=== PATIENT | male | born 1940 | race Caucasian/White ===

== ENCOUNTER 2023-07-24 10:02 | Outpatient (AMB) | payer MEDICARE, OTHER, SELFPAY ==
[2023-07-24 10:38] VITALS: BP 140/64; PULSE 79; O2SAT 94; BMI 25.8
--- NOTE | 2023-07-24 10:38 | HO.NEPHOV_ITS ---
Vital Signs 07/24/23 10:38 07/24/23 11:01 Height 5 ft 7 in Weight 165 lb BMI 25.8 BP 140/64 H 130/60 Blood Pressure Location Lt brachial Lt brachial Position Sitting Sitting Pulse 79 Pulse Source Pulse Oximeter Pulse Oximetry (%) 94 Oxygen Delivery Method Room Air Intake Visit Reasons: CKD STG3A/ Confirmed Print Line Feeder Required: No Accompanied by: Spouse Allergies No Known Allergies Allergy (Verified 07/24/23 10:39) HPI Comments Details: .. Jaime is a pleasant 82-year-old man with a history of longstanding hypertension and COPD. In June of 2023 he was found to have a serum creatinine 1.42 and subsequent creatinine was 1.5 mg/dL. EGFR of 50 mL/minute and he has been referred for further evaluation of CKD. Hypertension has been well controlled with amlodipine 10 mg. There has been no changes in the dose age for quite some time. According to his he has on a regular or high salt diet. He has a long history of smoking up to 2 packs per day. He quit in 2004 after the CVA. Jaime has a history of cerebrovascular accident about 4 years ago. He does not have any residual at this time. Has a history of chronic back pain. He has sciatica and has had steroid injections. Does not take any NSAIDs. FORMERLY [facility], 1928–1983 Medical History (Updated 07/24/23 @ 11:24 by Mateo Robins MD) H/O Mohs micrographic surgery for skin cancer Surgical History History of prostate biopsy (~12/2017) Hx of cataract surgery H/O colonoscopy (~08/2013) Review of Systems Const Denies fever(s) and Denies weight loss Card Denies chest pain Resp Denies cough and Denies hemoptysis GI Denies abdominal pain, Denies diarrhea and Denies nausea Neuro Denies focal weakness Physical Exam Vital Signs: Last Vital Signs Pulse 79 07/24/23 10:38 BP 130/60 07/24/23 11:01 Pulse Ox 94 07/24/23 10:38 Oxygen Delivery Method Room Air 07/24/23 10:38 BMI result Body Mass Index 25.8 Const General: comfortable Nutritional Appearance: well nourished Orientation/consciousness: patient oriented x3 HEENT Head: No normal to inspection Mouth: moist mucous membranes Neck Neck: Yes supple and Yes no JVD Resp Auscultation: clear to auscultation bilaterally, no rales and rub present Cardio Jugular venous distension: no JVD Palpation: no palpable S3 and no palpable S4 Heart sounds: no rubs GI Palpation (GI): Soft to palpation and nontender Percussion: No Fluid wave present General: Yes no CVA tenderness Back/Spine/Pelvis Back: no CVA tenderness Skin General skin exam: no rashes or lesions noted Neuro General: patient oriented x3 Extrem General: Yes no pedal edema and No clubbing Results Reviewed Results Reviewed: Renal ultrasonogram at [facility] on 07/22/2023. Both kidneys appeared normal in size with increased echogenicity. No stones no mass no hydronephrosis. Mild bladder wall thickening. Nephrology Results: No Data to Display Assessment & Plan Assessment & Plan (1) CKD (chronic kidney disease) stage 3, GFR 30-59 ml/min: Code(s): N18.30 - Chronic kidney disease, stage 3 unspecified Category: Medical (2) HTN (hypertension): Code(s): I10 - Essential (primary) hypertension Category: Medical Plan .. Jaime has a history of longstanding hypertension. Blood pressure is well controlled. Goal is to maintain blood pressure less than 130/80. 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 Echogenic kidneys suggestive of the same. Urine sediments bland without significant proteinuria. Therefore I do not believe he has any active glomerulonephritis or interstitial disease. No evidence of obstruction based on renal ultrasonogram. Clinical picture is not suggestive of renal artery stenosis His baseline creatinine is probably around 1.4-1.5 mg/dL Goal is to slow the progression of renal disease. Discussed importance of tight control blood pressure and maintain less than 130/80. Increase p.o. fluid intake. Continue to avoid nephrotoxic agents including NSAIDs. She will monitor serum creatinine periodically. He has a follow-up appointment with urologist Dr. Oropeza next week Jaime we will be going to [place] in November and will return in June of 2024. I plan to see him when he returns. I encouraged him to call me if he has any other issues in the interim. I have reassured him and answered all his questions. Orders: Orders Basic Metabolic Panel 11 Months N18.30 - Chronic kidney disease, stage 3 unspecified Coding Level of Care Code New Pt Level 4 (35224) Diagnoses CKD (chronic kidney disease) stage 3, GFR 30-59 ml/min N18.30 HTN (hypertension) I10
[2023-07-24 11:01] VITALS: BP 130/60
== END 2023-07-24 11:10 | disposition home or self-care (01) ==
PROVIDERS: PCP Family Medicine; Referring Provider Family Medicine; Visit Provider Internal Medicine Hypertension Specialist
DX: N18.30 Chronic kidney disease, stage 3 unspecified (principal); I10 Essential (primary) hypertension
CPT/HCPCS: 99204

== ENCOUNTER → 2023-07-24 10:02 | Outpatient (BNVA) | payer MEDICARE, OTHER, SELFPAY | PROVIDERS: PCP Family Medicine; Referring Provider Family Medicine; Visit Provider Internal Medicine Hypertension Specialist | DX: I12.9 Hypertensive chronic kidney disease with stage 1 through stage 4 chronic kidney disease, or unspecified chronic kidney disease (principal); N18.30 Chronic kidney disease, stage 3 unspecified | CPT/HCPCS: 99202 ==

== ENCOUNTER 2024-06-30 11:06 | Outpatient (REF) | payer MEDICARE, OTHER, SELFPAY ==
--- OUTSIDE RECORDS SUMMARY | 2024-06-30 12:36 | XMS_ITS | Data Portability ---
Author Organization [place] - [facility], Main Office Address [address] [place] [address] Care Team Providers Care Multimedia Technician Name Role Phone DES THOMASON Primary Care Provider Assessment No assessment recorded. Plan of Treatment Reminders Order Date Submit Date Provider Last Modified By Organization Details Last Modified Time Details Appointments None recorded. Lab None recorded. Referral None recorded. Procedures treadmill nuclear stress test (PROC) 2019 020 [facility], [address], [place], [address], 0 14:34:06 trans-thora cic echocardiog gerard (TTE) (PROC) 2019 020 [email or web address] Not available 0 12:18:57 Surgeries None recorded. Imaging electrocard iogram 2019 020 [email or web address] In-House Test, For Internal Use Only, Do Not Delete/merge, [id number] 0 13:37:44 Medication Orders None recorded. Patient TargetsNo targets recorded. Patient InstructionsNo instructions recorded. Reason for Referral None Reported. Results Created Date Observation Date Name Description Value Unit Range Abnormal Flag Note LastModifiedBy Organization Detail LastModifiedTime 03/10/19 20 03/10/2019 elect rocar diogr am Rate & Rhythm NSR Not Available In-[place] se Test For Internal Use Only, Do Not Delete/merge, [id number] 03/10/2019 12:13:51 03/10/19 20 02/24/2019 elect rocar diogr am No observ ation record ed. [email or web address] Not Available 03/10 15:02:10 03/10/19 20 02/24/2019 XR, chest No observ ation record ed. [email or web address] Not Available 03/10 15:06:08 03/10/19 20 03/10/2019 elect selwyn moses am No observ ation record ed. [email or web address] In-House Test For Internal Use Only, Do Not Delete/merge, [id number] 03/10/2019 15:15:03 03/11/19 20 03/10/2019 trans -thor acic echoc ardio gram (TTE) (PROC ) No observ ation record ed. [email or web address] [facility] [address], [place], [address], 03/12/2019 10:19:26 03/16/19 tread mill nucle ar stres s test (PROC ) No observ ation record ed. [email or web address] [facility] [address], [place], [address], 03/17/2019 17:24:44 03/16/19 20 03/16/2019 tread mill nucle ar stres s test (PROC ) No observ ation record ed. [email or web address] [facility] [address], [place], [address], 03/20/2019 15:05:26 Result Notes None recorded. Problems Name Problem SNOMED Code Status Onset Date Resolution Date Notes Provider Name and Address Organization Details Recorded Time Essential hypertension 43115030 Active 2019 GROVER Mathew - [facility] 0 12:26:48 Cerebrovascul ar accident 424514873 Active 2004 GROVER Mathew - [facility] 0 12:29:06 Problem Notes None recorded. Procedures Surgical History Date Name Laterality Status Provider Name and Address Organization Details Recorded Time bilateral extraction of cataracts completed ALCON NESS - [facility] 03/10/2019 12:29:27 screening for cancer completed ALCONQUE ZELAYA [place] - [facility] 03/10/2019 12:29:36 Imaging Results Imaging Date Name Status LastModified by Organization Details LastModified Time 02/24/2019 electrocardiogram completed [email or web address] Informa tion not available 03/10/2019 15:02:10 02/24/2019 XR, chest completed [email or web address] Information no t available 03/10/2019 15:06:08 03/10/2019 electrocardiogram completed [email or web address] In-Hous e Test For Internal Use Only, Do Not Delete/merge, [id number] 03/10/2019 15:15:03 03/10/2019 trans-thoracic echocardiogram (TTE) (PROC) completed [email or web address] [facility] [address], [place], [address], 03/12/2019 10:19:26 03/16/2019 treadmill nuclear stress test (PROC) completed [email or web address] [facility] [address], [place], [address], 03/17/2019 17:24:44 03/16/2019 treadmill nuclear stress test (PROC) completed [facility] [address], [place], [address], 03/20/2019 15:05:26 Procedure Notes None recorded. Medical Equipment None Reported. Allergies No known drug allergies Medications Name Sig Start Date Stop Date Status Note LastModified by Organization Details LastModified Time atorvastatin 40 mg tablet Take 1 tablet every day by oral route. active Not Available Not Available No t Available Toprol XL 100 mg tablet,exten ded release active Not Available Not Available Not Available amlodipine 5 mg tablet Take 1 tablet every day by oral route. active Not Available Not Available No t Available aspirin 81 mg tablet,delay ed release Take 1 tablet every day by oral route. active Not Available Not Available No t Available tramadol 50 mg tablet active Not Available Not Available No t Available losartan 100 mg-hydrochlo rothiazide 25 mg tablet Take 1 tablet every day by oral route. active Not Available Not Available No t Available imiquimod 5 % topical cream packet active Not Available Not Available Not Available amlodipine 10 mg tablet active Not Available Not Available Not Available cephalexin 500 mg capsule active Not Available Not Available Not Available methylpredni solone 4 mg tablets in a dose pack active Not Available Not Available No t Available Symbicort 80 mcg-4.5 mcg/actuatio n HFA aerosol inhaler Inhale 4 puffs twice a day by inhalation route. active Not Available Not Available No t Available Havrix (PF) 1,440 LIDIA unit/mL intramuscula r syringe active Not Available Not Available No t Available M-M-R II (PF) 1,000-12,500 TCID50/0.5 mL subcutaneous solution active Not Available Not Available Not Available Shingrix (PF) 50 mcg/0.5 mL intramuscula r suspension, kit active Not Available Not Available Not Available metoprolol succinate ER 100 mg capsule sprinkle, ext. release 24 hr Take 1 capsule every day by oral route. active Not Available Not Available No t Available Vitals Date Recorded Body weight Oxygen saturation Oxygen saturation in Arterial blood by Pulse oximetry Provider Name and Address Organization Details Last Updated DateTime 03/10/2019 52230.66 g 96 % 96 % ALCON NESS - [facility] 03/10/2019 12:16:44 Social History None recorded. Functional Status None recorded. Mental Status None recorded. Family History Relationship Description Onset Age of this Age Resolved Age Notes LastModified by Organization Details LastModified Time Mother Family history of malignant neoplasm [email or web address] Not available 2019 12:27:32 Father Essential hypertension [email or web address] Not available 12:28:09 Father Family history of stroke [email or web address] Not available 2019 12:28:25 Notes:THROAT CANCER Medical History Condition Response Hyperlipidemia Y Cancer Y Stroke Y Hypertension Y Immunizations Vaccine Type Date Status Note Provider Nam e and Address Organization Details Recorded Time tetanus toxoid, unspecified formulation 0 completed GROVER Mathew - [facility] 03/10/2019 12:21:41 pneumococcal, unspecified formulation 3 completed GROVER Mathew - [facility] 03/10/2019 12:22:04 Hep A, adult 9 completed GROEVR Mathew - [facility] 03/10/2019 12:22:45 MMR 9 completed GROVER Mathew - [facility] 03/10/2019 12:23:03 Past Encounters Encounter ID Performer Location Encounter Start Date Encounter Closed Date Diagnosis/Indication Diagnosis SNOMED-CT Code Diagnosis ICD10 Code Diagnosis Note [id number] LUÍS VIVAR MD [facility] [place] [address] [facility] [address] [place] [address] 03/10/2019 12:03:35 03/10/2019 13:37:43 Essential hypertension 45361006 I10 Dyspnea on exertion 6084 5006 R06.09 Electrocar diogram abnormal 868821489 R94.31 Hyperlipidemia 47294331 E78.5 Cerebrovas cular accident 973089592 I63.9 Health Concerns Section Related Observation LastModified by Organization Detai ls LastModified Time None Recorded Concern Status LastModified by Organization Details LastModified Time None Recorded Advance Directives Directive None Recorded Payers Insurance Date Sequence Insurance Name Policy Number Policy Carbajal Covered Member ID Carbajal Member ID Guarantor Name 06/02/2019 1 [place] Jaime Loera [id number] Jaime Loera 03/15/2019 2 [employer] [id number] Cat Loera [id number] Jaime Loera Notes Date Note Type Note Provider Name and Address Organization Details Recorded Time 03/10/2019 text/html 78 y/o Male with Ho COPD, CVA, HTN,HLP, Pt with Back pproblems Had preop show Poss Old Inferior infarct with T Changes in Inf leads, Pt with Increase ROSADO. Social:Former [employer] 1 1/2 PPdquit 2004ETOH: Social. Fam HO :Father CVAMother Ca LUÍS VIVAR MD [address], [place], [address], [facility] - [facility] 03/10/2019 13:14:20
--- OUTSIDE RECORDS SUMMARY | 2024-06-30 12:36 | XMS_ITS | Clinical Summary ---
Author Organization [facility] ity Address [address] [place] [address] Care Team Providers Care Library Attendant Name Role Phone Huitron, Gary Primary Care Provider [phone] Allergies No known active allergies Medications sertraline (ZOLOFT) 100 mg tablet Take 100 mg by mouth daily. Active atorvastatin (LIPITOR) 40 mg tablet Take 40 mg by mouth daily. Active metoprolol succinate (Kapspargo Sprinkle) 100 mg capsule,sprinkle ,ER 24hr Take 100 mg by mouth daily. Active amLODIPine (NORVASC) 10 mg tablet Take 10 mg by mouth daily. Active aspirin 81 mg chewable tablet Take 81 mg by mouth daily. Active Active Problems Problem Noted Date Diagnosed Date CKD (chronic kidney disease) stage 3, GFR 30-59 ml/min ([facility] V24, [facility] V28) 10/07/2018 Spinal stenosis 10/07/2018 Allergic rhinitis 07/22/2017 Asthma 07/22/2017 Chronic obstructive pulmonar y disease (COPD) ([facility] V24, [facility] V28) 07/22/2017 DDD (degenerative disc disease), lumbar 07/23/19 18 DISH (diffuse idiopathic skeletal hyperostosis) 07/22/2017 Overview (03/02/2024): Thoracic, incidental finding CT chest 10/25/16 Hyperlipidemia 07/22/2017 Hypertension 07/22/2017 Pulmonary nodule, right 07/22/2017 Overview (03/02/2024): 5 mm RUL Immunizations Name Administration Dates Next Due Influenza trivalent, 0.5mL, preservative free (Fluarix; FluLaval; Fluzone) ages 6mo and older (Afluria) 3 years and older 11/05/2017 Pneumococcal polysaccharide 23 valent (Pneumovax 23) 2yo and older 11/05/2017 Surgical History Surgery Date Site/Laterality Comments COLONOSCOPY 08/24/2013 PROCEDURE: HISTORICAL COLONOSCOPY CATARACT EXTRACTION PROCEDURE: HISTORICAL CATARACT REMOVAL Medical History Medical History Date Comments Allergic rhinitis 07/22/2017 DX:Allergic rh initis Asthma 07/22/2017 DX:Asthma Chronic obstructive pulmonar y disease (COPD) ([facility] V24, [facility] V28) 07/22/2017 DX:Chronic obstructi ve pulmonary disease (COPD) ([facility]) DDD (degenerative disc disease), lumbar 07/22/2017 DX:DDD (degenerative disc disease), lumbar DISH (diffuse idiopathic ske letal hyperostosis) 07/22/2017 DX:DISH (diffuse idiopathic skeletal hyperostosis); COMMENT: Thoracic, incidental finding CT chest 10/25/16 History of stroke 07/22/2017 DX:History of stroke Hyperlipidemia 07/22/2017 DX:Hyperlipidemi a Hypertension 07/22/2017 DX:Hypertension Pulmonary nodule, right 07/22/2017 DX:Pulmo nary nodule, right CKD (chronic kidney disease) stage 3, GFR 30-59 ml/min ([facility] V24, [facility] V28) 10/07/2018 DX:CKD (chronic kidney disea se) stage 3, GFR 30-59 ml/min ([facility]) History of squamous cell car cinoma of skin 10/07/2018 DX:History of squamous cell carcinoma of skin Spinal stenosis 10/07/2018 DX:Spinal stenos is Family History Medical History Relation Name Comments Stroke Father Throat cancer Mother Relation Name Status Comments Father Mother Social History Tobacco Use Types Packs/Day Years Used Date Smoking Tobacco: Former Cigarettes Q uit: 02/19/2004 Smokeless Tobacco: Never Alcohol Use Standard Drinks/Week Comments Yes 0 (1 standard drink = 0.6 oz pur e alcohol) Sex and Gender Information Value Date Recorded Sex Assigned at Not on file Legal Sex Male 1:48 PM EST Gender Identity Not on file Sexual Orientation Not on file Obstetrics History Last Filed Vital Signs Vital Sign Reading Time Taken Comments Blood Pressure 100/60 08/27/2023 9:03 AM EDT Sit ting L Arm Pulse 68 08/27/2023 9:03 AM EDT Temperature - - Respiratory Rate - - Oxygen Saturation - - Inhaled Oxygen Concentration - - Weight 74.8 kg (165 lb) 08/27/2023 9:03 AM EDT Height 170.2 cm (5' 7 ) 08/27/2023 9:03 AM EDT Body Mass Index 25.84 08/27/2023 9:03 AM EDT Plan of Treatment Upcoming Encounters Date Type Department Care Team (Late st Contact Info) Description 08/26/2024 8:15 AM EDT Office Visit Pulmonolgy - [place] [address] [place] [id number] Nam Galvan MD [address] [place] [address] Health Maintenance Due Date Last Done Comments COVID-19 Vaccine (#1) 08/23/1945 DTaP,Tdap,and Td Vaccines (1 - Tdap) 1961 Zoster Vaccines (1 of 2) 1992 RSV Immunization Adult Patie nts (1 - 1-dose 75+ series) 2017 Pneumococcal Vaccine: 50+ Ye ars (2 of 2 - PCV) 11/05/2018 11/05/2017 Cholesterol Screening (Lipid Panel) 01/27/2022 Depression Screening 01/27/2022 Falls Risk Assessment 01/27/2022 Social Influencers of Health Screening 01/27/2022 Hypertension/CHF/CAD Annual BMP Blood Test 02/03/2022 Influenza Vaccine (Season Ended) 2024 11/06/19 18 HIB Vaccines Aged Out No longer eligi ble based on patient's age to complete this topic HPV Vaccines Aged Out No longer eligi ble based on patient's age to complete this topic Hepatitis A Vaccines Aged Out No long er eligible based on patient's age to complete this topic Hepatitis B Vaccines Aged Out No long er eligible based on patient's age to complete this topic IPV Vaccines Aged Out No longer eligi ble based on patient's age to complete this topic MMR Vaccines Aged Out No longer eligi ble based on patient's age to complete this topic Meningococcal ACWY Vaccine Aged Out N o longer eligible based on patient's age to complete this topic Meningococcal B Vaccine Aged Out No l onger eligible based on patient's age to complete this topic RSV Immunization Patients Un micaela 20 months Aged Out No longer eligible b ased on patient's age to complete this topic Varicella Vaccines Aged Out No longer eligible based on patient's age to complete this topic Care Teams Library Attendant Relationship Specialty Start Date End Date Shaun Huitron DO [address], [place] PCP - General 08/02/17
[2024-06-30 18:31] LABS: Anion Gap 16 (12-20); Blood Urea Nitrogen 35 mg/dL (9-16); Calcium 9.6 mg/dL (8.4-10.2); Carbon Dioxide 23 mmol/L (22-29); Chloride 106 mmol/L (96-108); Estimated Glomerular Filt Rate 51; Glucose Random 108 mg/dL (60-115); Potassium 4.5 mmol/L (3.3-5.1); Sodium 140 mmol/L (135-145)
== END 2024-06-30 11:07 | disposition home or self-care (01) ==
LOC: HO.HKASLDS 11:06
PROVIDERS: Visit Provider Internal Medicine Hypertension Specialist
DX: N18.30 Chronic kidney disease, stage 3 unspecified (principal)
CPT/HCPCS: 36415; 80048

== ENCOUNTER 2024-07-01 10:04 | Outpatient (REF) | payer MEDICARE, OTHER, SELFPAY ==
--- OUTSIDE RECORDS SUMMARY | 2024-07-01 11:30 | XMS_ITS | Encounter Summary ---
Author Organization [employer] [facility] Address [address] [place] [address] Care Team Providers Care Cabin Man Name Role Phone Shaun Huitron DO Primary Care Provider Unava ilable Encounter Details Date Type Department Care Team Description 10/17/2021 Telephone Pulmonology - [facility] [address] [facility] [address] [place] [address] Nam Galvan MD [address] [place] [address] Social History Tobacco Use Types [...] AM EDT documented as of this encounter Plan of Treatment Not on file documented as of this encounter Visit Diagnoses Not on filedocumented in this encounter Care Teams Cabin Man Relationship Specialty Start Date End Date Shaun Huitron DO PCP - General Family Practice 08/02/17 documented as of this encounter
--- OUTSIDE RECORDS SUMMARY | 2024-07-01 11:30 | XMS_ITS | Encounter Summary ---
Author Organization [facility] [employer] [facility] Address [address] [place] [address] Care Team Providers Care Armament Aircraft Mechanic Name Role Phone Shaun Huitron DO Primary Care Provider Unava ilable Encounter Details Date Type Department Care Team Description 10/06/2018 Dental Professional Report Medical Records [address] [place] [address] Tiffany Valadez PA-C [address] [place] [address] Social History Tobacco Use Types Packs/Day [...] on filedocumented in this encounter Care Teams Armament Aircraft Mechanic Relationship Specialty Start Date End Date Shaun Huitron DO PCP - General Family Practice 08/02/17 documented as of this encounter
--- OUTSIDE RECORDS SUMMARY | 2024-07-01 11:30 | XMS_ITS | Encounter Summary ---
Author Organization [facility] [employer] [facility] Address [address] [place] [address] Care Team Providers Care Pillow Cleaner Name Role Phone Shaun Huitron DO Primary Care Provider Unava ilable Reason for Visit * Reason Onset Date Comments Pre Op Visit 10/02/2021 Encounter Details Date Type Department Care Team Description 10/02/2021 Telephone Pulmonology - [place] [address] [facility] [address] [place] [address] Nam Galvan MD [address] [place] [address] Pre Op Visit Social History [...] 11:13 AM EDT Spoke to Desi from [facility]. Faxing notes to her for pt pre-op. [phone]. [phone]. * Telephone Encounter - Jeanna Mendoza - 10/02/2021 12:23 PM EDT Desi nurse at [facility] prostic and reconstruction from Dr.Jonathan armenta calling wondering if its ok for this patient to have the surgery pre op appt as an audio, and they gonna need a note stating from [place] that patient its gonna be cleared for surgery he its also gonna be seen at [facility] for clearance on 10/11 by . [phone] her contact number its # [phone] documented in this encounter Plan of Treatment Not on file documented as of this encounter Visit Diagnoses Not on filedocumented in this encounter Care Teams Pillow Cleaner Relationship Specialty Start Date End Date Shaun Huitron DO PCP - General Family Practice 08/02/17 documented as of this encounter
--- OUTSIDE RECORDS SUMMARY | 2024-07-01 11:30 | XMS_ITS | Encounter Summary ---
Author Organization [facility] [employer] [facility] Address [address] [place] [address] Care Team Providers Care Technical Services Manager Name Role Phone Shaun Huitron DO Primary Care Provider Unava ilable Encounter Details Date Type Department Care Team Description 08/06/2017 Release of Information Medical Records [address] [place] [address] Abstract, Provider Social History Tobacco Use Types [...] on filedocumented in this encounter Care Teams Technical Services Manager Relationship Specialty Start Date End Date Shaun Huitron DO PCP - General Family Practice 08/02/17 documented as of this encounter
--- OUTSIDE RECORDS SUMMARY | 2024-07-01 11:30 | XMS_ITS | Encounter Summary ---
Author Organization [facility] Address [address] [place] [address] Care Team Providers Care Team Leader Surgery Name Role Phone Shaun Huitron DO Primary Care Provider Unava ilable Reason for Visit * Reason Comments E-prescribe Rx Request Encounter Details Date Type Department Care Team Description 12/25/2021 Refill Pulmonology - [place] [address] [facility] [address] [place] [address] Nam Galvan MD [address] [place] [address] E-prescribe Rx Request Social History Tobacco Use Types Packs/Day Years Used Date Smoking Tobacco: Former Cigarettes 1.5 35 Q uit: 2004 Smokeless Tobacco: Never Alcohol Use Standard Drinks/Week Comments Yes 0 (1 standard drink = 0.6 oz pur e alcohol) occasional Sex Assigned at Date Recorded Not on file documented as of this encounter Miscellaneous Notes * Telephone Encounter - Jeanna Mendoza - 12/25/2021 2:42 PM EST Patient would like script to be: E-PRESCRIBED/FAXED TO PHARMACY WHEN WAS THE PATIENT'S LAST APPOINTMENT IN ADULT MEDICINE? 10/03/21 WHEN WAS THE LAST TIME THE PATIENT SAW THEIR PCP? Same as above Does patient have an upcoming appointment? Yes 08/20/22 (THE MEDICATION REQUESTED IS ON THE MED LIST ABOVE) All of the medications requested were on the CURRENT MEDS list Did you check the Pharmacy information above?: YES Patient wants: 30 -day supply Is this a mail order prescription request ? NO If the refill is from a FAXED refill request what is the RX # listed on the fax? N/A Patients current insurance carrier is: Payor: MEDICARE-Umbrella Here / Plan: MEDICARE-Umbrella Here / Product Type: MEDICARE [id number] documented in this encounter Plan of Treatment Not on file documented as of this encounter Visit Diagnoses Not on filedocumented in this encounter Care Teams Team Leader Surgery Relationship Specialty Start Date End Date Shaun Huitron, PCP - General Family Practice 08/02/17 documented as of this encounter
--- OUTSIDE RECORDS SUMMARY | 2024-07-01 11:30 | XMS_ITS | Continuity of Care Document ---
Author Organization [facility] Address [address] [place] [address] Phone Care Team Providers Care Cloth Colorer Name Role Phone Sohan Goncalves MD Unavailable [...] W/ Image Guidance Methylprednisolone 80 Mg Office/outpatient visit,[facility] MRI Lumbar Spine X-ray exam lower spine 2-3 views 2022 Office/outpatient visit,suzette jones 2022 Advance Directives Directive Yes / No Effective Date File Name No Information Encounters Encounter Description Practice Location Reason(s) For Visit Diagnoses Date Provider Providers Copied on Encounter Office/outpa tient visit,[facility], [address], [place], [place], [id number], tel:[phone] lumbar spine (chief complaint) Body mass index [BMI] 26.0-26.9, adultSpondylolis thesis at L4-L5 levelLumbar painSpinal stenosis, lumbar region with neurogenic claudicationLumb ar radiculopathy May-0 4 Ivanna Parry. [address], [place], [place], [id number] , [place]. tel:[phone] Referring Provider: Sohan Goncalves MD, [address], [place], [address] . tel:[phone] [facility], [address], [place], [place], [id number], [place] tel:[phone] [place] [address] Lumbar radiculopathySpi nal stenosis, lumbar region with neurogenic claudication 4 Ivanna Parry. [address], [place], [place], [id number] , [place]. tel:[phone] Referring Provider: Sohan Goncalves MD, [address], [place], [address] . tel:[phone] Office/outpa tient visit,[facility], [address], [place], [place], [id number], [place] tel:[phone] lumbar spine (chief complaint) Spondylolisthesi s at L4-L5 levelLumbar painSpinal stenosis, lumbar region with neurogenic claudicationLumb ar radiculopathy 4 Ivanna Parry. [address], [place], [place], [id number] , [place]. tel:[phone] Referring Provider: Sohan Goncalves MD, [address], [place], [address] . tel:[phone] [facility], [address], [place], [place], [id number], [place] tel:[phone] [facility] [address] Lumbar radiculopathySpi nal stenosis, lumbar region with neurogenic claudication 4 Ivanna Parry. [address], [place], [place], [address] , [place]. tel:[phone] Referring Provider: Sohan Goncalves MD, [address], [place], [address] . tel:[phone] Office/outpa tient visit,est, high [facility], [address], [place], [place] [address], [place] tel:[phone] lumbar spine (chief complaint) Lumbar radiculopathySpo ndylolisthesis at L4-L5 levelLumbar painSpinal stenosis, lumbar region with neurogenic claudication 4 Ivanna Parry. [address], [address], [place], [place], [address] , [place]. tel:[phone] Referring Provider: Sohan Goncalves MD, [address], [place], [address] . tel:[phone] [facility], [address], [place], [place], [id number], [place] tel:[phone] [facility] [address] No Information 3 Ramy Kline. [address], [place], [place], [address] , [place]. tel: [phone] Referring Provider: Sohan Goncalves MD, [address], [place], [address] . tel:[phone] Office/outpa tient visit,[facility], [address], [place], [place], [id number], [place] tel:[phone] lumbar spine pain (chief complaint) Lumbar painLumbar radiculopathySpo ndylolisthesis at L4-L5 level 3 Jessica Sotomayor. [address], [place], [place], [address] , [place]. tel: [phone] Referring Provider: Bran De La Garza, [address] [facility] [address], [place], [address] . tel:[phone] Family History Family Member Type Diagnosis Age At Onset Father Problem (finding) Mother Problem (finding) Payers Payer name Insurance type Covered constitution party ID Authoriza tion(s) MEDICARE MB [id number] [employer] OPEN ACCESS CI [id number] Social History Type Description Quantity Date Captured [...] neurogenic claudication. Patient has been treated in [place] in the past for stenosis with multiple epidurals with good success. He comes to [place] approximately 1 month ago and began having [...] has been completed with me in the [place] office for possible epidurals with Dr. Goncalves. [...]
--- OUTSIDE RECORDS SUMMARY | 2024-07-01 11:30 | XMS_ITS | Encounter Summary ---
Author Organization [facility] Address [address] [place] [address] Care Team Providers Care Print Shop Stenographer Name Role Phone Shaun Huitron DO Primary Care Provider Unava ilable Encounter Details Date Type Department Care Team Description 08/08/2017 Refill Pulmonology - [place] [address] [facility] [address] [place] [address] Nam Galvan MD [address] [place] [address] Social History Tobacco Use Types [...] on filedocumented in this encounter Care Teams Print Shop Stenographer Relationship Specialty Start Date End Date Shaun Huitron DO PCP - General Family Practice 08/02/17 documented as of this encounter
[2024-07-01 18:21] LABS: Appearance Urine Clear; Color Urine Yellow; Glucose Urine UA Negative (Negative); Leukocyte Esterase Urine Negative (Negative); Nitrite Urine Negative (Negative); Urine Blood Negative (Negative); Urine Ketones Negative (Negative); Urine Protein Negative (Neg-Trace)
[2024-07-01 18:57] LABS: Creatinine Urine 37.93 mg/dL; Total Protein Urine Random < 7 mg/dL (<12)
== END 2024-07-01 10:05 | disposition home or self-care (01) ==
LOC: HO.HKASLDS 10:04
PROVIDERS: PCP Family Medicine; Visit Provider Internal Medicine Hypertension Specialist
DX: N18.30 Chronic kidney disease, stage 3 unspecified (principal); I10 Essential (primary) hypertension
CPT/HCPCS: 81003; 82570; 84156; 99212

== ENCOUNTER 2024-07-01 10:04 | Outpatient (AMB) | payer MEDICARE, OTHER, SELFPAY ==
[2024-07-01 10:12] VITALS: BP 122/68; PULSE 83; O2SAT 93; BMI 25.4
--- NOTE | 2024-07-01 10:12 | HO.NEPHOV ---
Vital Signs 07/01/24 10:12 Height 5 ft 7 in Weight 162 lb BMI 25.4 BP 122/68 Blood Pressure Location Lt brachial Position Sitting Pulse 83 Pulse Source Pulse Oximeter Pulse Oximetry (%) 93 Oxygen Delivery Method Room Air Intake Visit Reasons: CKD STG3A/ Conf Estimator Required: No Accompanied by: Self / Same As Patient Allergies No Known Allergies Allergy (Verified 07/01/24 10:14) Medication List - Last Reconciled 07/01/24 by Mateo Robins MD amlodipine 10 mg PO DAILY aspirin 81 mg PO DAILY atorvastatin 40 mg PO DAILY budesonide-formoterol 80-4.5 mcg/actuation (Symbicort) 1 inh inhalation BID losartan-hydrochlorothiazide 100-25 mg 1 tab PO DAILY metoprolol succinate ER 100 mg PO DAILY HPI Comments Details: .. Jaime is a pleasant 82-year-old man with a history of longstanding hypertension and COPD. In June of 2023 he was found to have a serum creatinine 1.42 and subsequent creatinine was 1.5 mg/dL. EGFR of 50 mL/minute and he has been referred for further evaluation of CKD. Hypertension has been well controlled with amlodipine 10 mg. There has been no changes in the dose age for quite some time. According to his he has on a regular or high salt diet. He has a long history of smoking up to 2 packs per day. He quit in 2004 after the CVA. Jaime has a history of cerebrovascular accident about 4 years ago. He does not have any residual at this time. Has a history of chronic back pain. He has sciatica and has had steroid injections. Does not take any NSAIDs. 07/01/24 Here for annual follow up No new issues Meds remain unchanged [facility]. Uneventful [facility] Medical History (Updated 07/24/23 @ 11:24 by Mateo Robins MD) H/O Mohs micrographic surgery for skin cancer Surgical History History of prostate biopsy (~12/2017) Hx of cataract surgery H/O colonoscopy (~08/2013) Physical Exam Vital Signs: Last Vital Signs Pulse 83 07/01/24 10:12 BP 122/68 07/01/24 10:12 Pulse Ox 93 07/01/24 10:12 Oxygen Delivery Method Room Air 07/01/24 10:12 BMI result Body Mass Index 25.4 Const General: comfortable Nutritional Appearance: well nourished Orientation/consciousness: patient oriented x3 HEENT Head: No normal to inspection Mouth: moist mucous membranes Neck Neck: Yes supple and Yes no JVD Resp Auscultation: clear to auscultation bilaterally and no rales Cardio Jugular venous distension: no JVD Palpation: no palpable S3 and no palpable S4 Heart sounds: no rubs GI Palpation (GI): Soft to palpation and nontender Percussion: No Fluid wave present General: Yes no CVA tenderness Back/Spine/Pelvis Back: no CVA tenderness Skin General skin exam: no rashes or lesions noted Neuro General: patient oriented x3 Extrem General: Yes no pedal edema and No clubbing Results Reviewed Nephrology Results: Sodium 140 mmol/L (135-145) 06/30/24 Potassium 4.5 mmol/L (3.3-5.1) 06/30/24 Chloride 106 mmol/L (96-108) 06/30/24 Carbon Dioxide 23 mmol/L (22-29) 06/30/24 BUN 35 mg/dL (9-16) H 06/30/24 Creatinine 1.35 mg/dL (0.5-1.4) 06/30/24 Calcium 9.6 mg/dL (8.4-10.2) 06/30/24 Assessment & Plan Assessment & Plan (1) CKD (chronic kidney disease) stage 3, GFR 30-59 ml/min: Code(s): N18.30 - Chronic kidney disease, stage 3 unspecified Category: Medical (2) HTN (hypertension): Code(s): I10 - Essential (primary) hypertension Category: Medical Plan .. Jaime has a history of longstanding hypertension. Blood pressure is well controlled. Goal is to maintain blood pressure less than 130/80. 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 Echogenic kidneys suggestive of the same. Urine sediments bland without significant proteinuria. Therefore I do not believe he has any active glomerulonephritis or interstitial disease. No evidence of obstruction based on renal ultrasonogram. Clinical picture is not suggestive of renal artery stenosis Creatinine has improved and currently at 1.35 with eGFR of 51 ml/mt Goal is to slow the progression of renal disease. Discussed importance of tight control blood pressure and maintain less than 130/80. Increase p.o. fluid intake. Continue to avoid nephrotoxic agents including NSAIDs. She will monitor serum creatinine periodically. Continue follow-up appointment with urologist Dr. Oropeza/Urology Orders: Orders Basic Metabolic Panel 1 Year N18.30 - Chronic kidney disease, stage 3 unspecified UA and rflx microscopic Today N18.30 - Chronic kidney disease, stage 3 unspecified Total Protein Urine Random Today N18.30 - Chronic kidney disease, stage 3 unspecified Creatinine Urine Today N18.30 - Chronic kidney disease, stage 3 unspecified Coding Level of Care Code Est Pt Level 4 (27170) Diagnoses CKD (chronic kidney disease) stage 3, GFR 30-59 ml/min N18.30 HTN (hypertension) I10
--- OUTSIDE RECORDS SUMMARY | 2024-07-01 11:00 | XMS_ITS | Encounter Summary ---
Author Organization [facility] Address [address] [place] [address] Care Team Providers Care Medical Staff Specialist Name Role Phone Shaun Huitron DO Primary Care Provider Unava ilable Encounter Details Date Type Department Care Team Description 08/06/2017 Release of Information Medical Records [address] [place] [id number] Abstract, Provider Social History Tobacco Use Types Packs/Day Years Used Date Smoking Tobacco: Former Cigarettes 1.5 35 Smokeless Tobacco: Former Quit: 2004 Alcohol Use Standard Drinks/Week Comments Yes 0 (1 standard drink = 0.6 oz pur e alcohol) occasional Sex Assigned at Date Recorded Not on file documented as of this encounter Plan of Treatment Not on file documented as of this encounter Visit Diagnoses Not on filedocumented in this encounter Care Teams Medical Staff Specialist Relationship Specialty Start Date End Date Shaun Huitron DO PCP - General Family Practice 08/02/17 documented as of this encounter
--- OUTSIDE RECORDS SUMMARY | 2024-07-01 11:00 | XMS_ITS | Clinical Summary ---
Author Organization [facility] Address [address] [place] [address] Care Team Providers Care Master Technician Name Role Phone Sahun Huitron DO Primary Care Provider Unava ilable Allergies No known active allergies Medications Medication Sig Dispensed Refills Start Date End Date Status amlodipine (NORVASC) 10 MG tablet Take 10 mg by mouth daily. 0 Active aspirin 81 MG chewable tablet Take 81 mg by mouth daily. 0 Active atorvastatin (LIPITOR) 40 MG tablet Take 40 mg by mouth daily. 0 Active Metoprolol Succinate 100 MG Capsule ER 24 Hour Sprinkle Take 100 mg by mouth daily. 0 Active sertraline (ZOLOFT) 100 MG tabletIndications:Pulmo nary emphysema, unspecified emphysema type (HCC) Take 100 mg by mouth daily. 0 Active Active Problems Problem Noted Date CKD (chronic kidney disease) stage 3, GF R 30-59 ml/min 10/07/2018 History of squamous cell carcinoma of sk in 10/07/2018 Spinal stenosis 10/07/2018 Hypertension 07/22/2017 Hyperlipidemia 07/22/2017 History of stroke 07/22/2017 DDD (degenerative disc disease), lumbar 07/22/2017 Asthma 07/22/2017 Allergic rhinitis 07/22/2017 Pulmonary nodule, right 07/22/2017 Overview: 5 mm RUL DISH (diffuse idiopathic skeletal hypero stosis) 07/22/2017 Overview: Thoracic, incidental finding CT chest 10/25/16 Chronic obstructive pulmonary disease (C OPD) 07/22/2017 Immunizations Name Administration Dates Next Due Influenza (> 6 Months) 11/05/2017 Pneumoccoccal(Adult) Polysaccharide PPSV23 11/05 Family History Medical History Relation Name Comments Stroke Father Throat Cancer Mother Relation Name Status Comments Father Mother Social History Tobacco Use Types Packs/Day Years Used Date Smoking Tobacco: Former Cigarettes 1.5 35 Q uit: 2005 Smokeless Tobacco: Never Tobacco Cessation:Counseling Given: Not Answered Alcohol Use Standard Drinks/Week Comments Yes 0 (1 standard drink = 0.6 oz pur e alcohol) occasional Sex Assigned at Date Recorded Not on file Last Filed Vital Signs Vital Sign Reading Time Taken Comments Blood Pressure 100/60 08/27/2023 9:03 AM EDT Pulse 68 08/27/2023 9:03 AM EDT Temperature 36.4 ??C (97.5 ??F) 08/27/2023 9:03 AM ED T Respiratory Rate 20 08/27/2023 9:03 AM EDT Oxygen Saturation 97% 08/27/2023 9:03 AM EDT Inhaled Oxygen Concentration - - Weight 74.8 kg (165 lb) 08/27/2023 9:03 AM EDT Height 170.2 cm (5' 7 ) 08/27/2023 9:03 AM EDT Body Mass Index 25.84 08/27/2023 9:03 AM EDT Plan of Treatment Health Maintenance Due Date Last Done Comments Covid-19 Vaccine (#1) 02/22/1941 DEPRESSION SCREEN 1954 CHOLESTEROL SCREENING 1962 SHINGLES VACCINE (1 of 2) 1992 FALL RISK ASSESSMENT 08/23/2007 PNEUMOCOCCAL VACCINE (2 - PCV) 11/05/2018 11/05/2017 , 11/05/2017 BMI CHECK/ADVISE 02/19/2024 INFLUENZA (Season Ended) 2024 11/05/2017, 11/18 DTAP/TDAP/TD (2 - Td or Tdap) 10/24/2029 10/25/2019 Care Teams Master Technician Relationship Specialty Start Date End Date Shaun Huitron, DO PCP - General Family Practice 08/02/17
--- OUTSIDE RECORDS SUMMARY | 2024-07-01 11:00 | XMS_ITS | Encounter Summary ---
Author Organization [facility] Address [address] [place] [address] Care Team Providers Care Striker Off Name Role Phone Shaun Huitron DO Primary Care Provider Unava ilable Reason for Visit * Reason Onset Date Comments Follow-up 08/20/2022 Regarding call Encounter Details Date Type Department Care Team Description 08/20/2022 Telephone Pulmonology - [place] [address] [facility] [address] [place] [address] Nam Galvan MD [address] [place] [address] Follow-up (Regarding call) Social History Tobacco Use Types Packs/Day Years Used Date Smoking Tobacco: Former Cigarettes 1.5 35 Q uit: 2004 Smokeless Tobacco: Never Alcohol Use Standard Drinks/Week Comments Yes 0 (1 standard drink = 0.6 oz pur e alcohol) occasional Sex Assigned at Date Recorded Not on file COVID-19 Exposure Response Date Recorded In the last 10 days, have yo u been in contact with someone who was confirmed or suspected to have Coronavirus/COVID-19? No / Unsure 08/20/2022 8:04 AM EDT documented as of this encounter Miscellaneous Notes * Telephone Encounter - Abby Cheung - 08/20/2022 2:39 PM EDT Patient called back in regards to receiving a phone call to call the office. There no documentation. Please call patient back; phone number verified. documented in this encounter Plan of Treatment Not on file documented as of this encounter Visit Diagnoses Not on filedocumented in this encounter Care Teams Striker Off Relationship Specialty Start Date End Date Shaun Huitron, PCP - General Family Practice 08/02/17 documented as of this encounter
--- OUTSIDE RECORDS SUMMARY | 2024-07-01 11:00 | XMS_ITS | Encounter Summary ---
Author Organization [facility] Address [address] [place] [address] Care Team Providers Care Smoke Jumper Supervisor Name Role Phone Shaun Huitron DO Primary Care Provider Unava ilable Reason for Visit * Reason Onset Date Comments Senior Patrol Agent Feedback 08/05/2017 CAT SCAN Encounter Details Date Type Department Care Team Description 08/05/2017 Telephone Pulmonology - [place] [address] [facility] [address] [place] [address] Nam Galvan MD [address] [place] [phone] Senior Patrol Agent Feedback (CAT SCAN) Social History Tobacco Use Types Packs/Day Years Used Date Smoking Tobacco: Former Cigarettes 1.5 35 Smokeless Tobacco: Former Quit: 2005 Alcohol Use Standard Drinks/Week Comments Yes 0 (1 standard drink = 0.6 oz pur e alcohol) occasional Sex Assigned at Date Recorded Not on file documented as of this encounter Miscellaneous Notes * Telephone Encounter - Amol Christine - 08/05/2017 8:55 AM EDT Order faxed to Juan at [phone], notification letter mailed to patient. documented in this encounter Plan of Treatment Not on file documented as of this encounter Visit Diagnoses Not on filedocumented in this encounter Care Teams Smoke Jumper Supervisor Relationship Specialty Start Date End Date Shaun Huitron DO PCP - General Family Practice 08/02/17 documented as of this encounter
--- OUTSIDE RECORDS SUMMARY | 2024-07-01 11:00 | XMS_ITS | Clinical Summary ---
Author Organization [facility] Address [address] [place] [address] Care Team Providers Care Federal Appellate Clerk Name Role Phone Huitron, Gary Primary Care Provider [phone] Allergies No known active allergies Medications sertraline [...] kidney disease) stage 3, GFR 30-59 ml/min ([facility] V24, [facility] V28) 10/07/2018 Spinal stenosis 10/07/2018 Allergic rhinitis 07/22/2017 Asthma 07/22/2017 Chronic obstructive pulmonar y disease (COPD) ([facility] V24, [facility] V28) 07/22/2017 DDD (degenerative disc disease), lumbar [...] DX:Asthma Chronic obstructive pulmonar y disease (COPD) ([facility] V24, [facility] V28) 07/22/2017 DX:Chronic obstructi ve pulmonary disease (COPD) ([facility]) DDD (degenerative disc disease), lumbar 07/22/2017 DX:DDD (degenerative disc disease), lumbar DISH (diffuse idiopathic ske letal hyperostosis) 07/22/2017 DX:DISH (diffuse idiopathic skeletal hyperostosis); COMMENT: Thoracic, incidental finding CT chest 10/25/16 History of stroke 07/22/2017 DX:History of stroke Hyperlipidemia 07/22/2017 DX:Hyperlipidemi a Hypertension 07/22/2017 DX:Hypertension Pulmonary nodule, right 07/22/2017 DX:Pulmo nary nodule, right CKD (chronic kidney disease) stage 3, GFR 30-59 ml/min ([facility] V24, [facility] V28) 10/07/2018 DX:CKD (chronic kidney disea se) stage 3, GFR 30-59 ml/min ([facility]) History of squamous cell car cinoma of [...] 8:15 AM EDT Office Visit Pulmonolgy - [place] [address] [facility] [address] [place] [phone] Nam Galvan MD [address] [facility] [address] [address] [place] [address] Health Maintenance Due Date Last Done Comments [...] age to complete this topic Care Teams Federal Appellate Clerk Relationship Specialty Start Date End Date Shaun Huitron DO [address] [place], [place] PCP - General 08/02/17
--- OUTSIDE RECORDS SUMMARY | 2024-07-01 11:00 | XMS_ITS | Encounter Summary ---
Author Organization [facility] Address [address] [place] [address] Care Team Providers Care Leather Goods Maker Name Role Phone Shaun Huitron DO Primary Care Provider Unava ilable Encounter Details Date Type Department Care Team Description 08/08/2017 Refill Pulmonology - [place] [address] [facility] [address] [place] [address] Nam Galvan MD [address] [place] [address] Social History Tobacco Use Types Packs/Day Years [...] on filedocumented in this encounter Care Teams Leather Goods Maker Relationship Specialty Start Date End Date Shaun Huitron DO PCP - General Family Practice 08/02/17 documented as of this encounter
--- OUTSIDE RECORDS SUMMARY | 2024-07-01 11:00 | XMS_ITS | Encounter Summary ---
Author Organization [facility] Address [address] [place] [address] Care Team Providers Care Weapons Mechanic Name Role Phone Shaun Huitron DO Primary Care Provider Unava ilable Reason for Visit * Reason Onset Date Comments Pre-op Needed 09/29/2021 Encounter Details Date Type Department Care Team Description 09/29/2021 Telephone Pulmonology - [place] [address] [facility] [address] [place] [address] Nam Galvan MD [address] [place] [address] Pre-op Needed Social History Tobacco Use Types Packs/Day Years Used Date Smoking Tobacco: Former Cigarettes 1.5 35 Q uit: 2004 Smokeless Tobacco: Never Alcohol Use Standard Drinks/Week Comments Yes 0 (1 standard drink = 0.6 oz pur e alcohol) occasional Sex Assigned at Date Recorded Not on file documented as of this encounter Miscellaneous Notes * Telephone Encounter - Nam Galvan MD - 09/29/2021 5:34 PM EDT Audio 1130 next saturday * Telephone Encounter - Jeanna Mendoza - 09/29/2021 9:22 AM EDT Patient call received, he needs a Pre-Op apt. 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 Please Advise. documented in this encounter Plan of Treatment Not on file documented as of this encounter Visit Diagnoses Not on filedocumented in this encounter Care Teams Weapons Mechanic Relationship Specialty Start Date End Date Shaun Huitron DO PCP - General Family Practice 08/02/17 documented as of this encounter
--- OUTSIDE RECORDS SUMMARY | 2024-07-01 11:00 | XMS_ITS | Encounter Summary ---
Author Organization [facility] Address [address] [place] [address] Care Team Providers Care Putty Glazer Name Role Phone Shaun Huitron DO Primary Care Provider Unava ilable Reason for Visit * Reason Onset Date Comments Pre Op Visit 10/02/2021 Encounter Details Date Type Department Care Team Description 10/02/2021 Telephone Pulmonology - [place] [address] [facility] [address] [place] [address] Nam Galvan MD [address] [place] [address] Pre Op Visit Social History Tobacco Use Types Packs/Day Years [...] was confirmed or suspected to have Coronavirus/COVID-19? Unable to assess 10/03/2021 7:36 AM EDT documented as of this encounter Miscellaneous Notes * Telephone Encounter - Darrius Gallegos CMA - 10/04/2021 11:13 AM EDT Spoke to Desi from [facility]. Faxing notes to her for pt pre-op. [phone]. [phone]. * Telephone Encounter - Jeanna Mendoza - 10/02/2021 12:23 PM EDT Desi nurse at [facility] prostic and reconstruction from Dr.Jonathan armenta calling wondering if its ok for this patient to have the surgery pre op appt as an audio, and they gonna need a note stating from [place] that patient its gonna be cleared for surgery he its also gonna be seen at [facility] for clearance on 10/11 by . [phone] her contact number its # [phone] documented in this encounter Plan of Treatment Not on file documented as of this encounter Visit Diagnoses Not on filedocumented in this encounter Care Teams Putty Glazer Relationship Specialty Start Date End Date Shaun Huitron DO PCP - General Family Practice 08/02/17 documented as of this encounter
--- OUTSIDE RECORDS SUMMARY | 2024-07-01 11:00 | XMS_ITS | Continuity of Care Document ---
Author Organization [facility] Address [address] [place] [address] Phone Care Team Providers Care Security Operations Engineer Name Role Phone Sohan Goncalves MD Unavailable Unavailable Allergies, Adverse Reactions, Alerts Substance Reaction Status Criticality No Known Allergies Active No Inform ation Medications Medication Instructions Dosage Effective Dates (start - stop) Status Comments tramadol 50 mg tablet take 1 tablet by oral route every 6 hours as needed 50 MG - Active acute pain exception Symbicort 80 mcg-4.5 mcg/actuation HFA aerosol inhaler inhale 2 puff by inhalation route 2 times every day in the morning and evening 2.00 puff - Active sertraline 100 mg tablet take 1 tablet by oral route every day 100 MG - Active Dino Low Dose Aspirin 81 mg tablet,delayed release take 1 tablet by oral route every day 81 MG - Active amlodipine 10 mg tablet take 1 tablet by oral route every day 10 MG - Active atorvastatin 40 mg tablet take 1 tablet by oral route every day 40 MG - Active metoprolol succinate ER 100 mg tablet,extended release 24 hr take 1 tablet by oral route every day 100 MG - Active Medrol (Malcolm) 4 mg tablets in a dose pack Take as directed for 6 days - Active Procedures Procedure Date Office/outpatient visit,est, high Translaminar Lumbar\Sacral Or Caudal W/ Image Guidance Methylprednisolone 80 Mg Office/outpatient visit,est, high Translaminar Lumbar\Sacral Or Caudal W/ Image Guidance Methylprednisolone 80 Mg Office/outpatient visit,[facility] MRI Lumbar Spine X-ray exam lower spine 2-3 views 2022 Office/outpatient visit,suzette jones 2022 Advance Directives Directive Yes / No Effective Date File Name No Information Encounters Encounter Description Practice Location Reason(s) For Visit Diagnoses Date Provider Providers Copied on Encounter Office/outpa tient visit,[facility], [address], [place], [place], [id number], tel:[phone] lumbar spine (chief complaint) Body mass index [BMI] 26.0-26.9, adultSpondylolis thesis at L4-L5 levelLumbar painSpinal stenosis, lumbar region with neurogenic claudicationLumb ar radiculopathy May-0 4 Ivanna Parry. [address], [place], [place], [address] , [place]. tel:[phone] Referring Provider: Sohan Goncalves MD, [address], [place], [address] . tel:[phone] [facility], [address], [place], [place], [address], [place] tel:[phone] Lumbar radiculopathySpi nal stenosis, lumbar region with neurogenic claudication 4 Ivanna Parry. [address], [place], [place], [address] , [place]. tel:[phone] Referring Provider: Sohan Goncalves MD, [address], [place], [address] . tel:[phone] Office/outpa tient visit,[facility], [address], [place], [place], [address], [place] tel:[phone] lumbar spine (chief complaint) Spondylolisthesi s at L4-L5 levelLumbar painSpinal stenosis, lumbar region with neurogenic claudicationLumb ar radiculopathy 4 Ivanna Parry. [address], [place], [place], [address] , [place]. tel:[phone] Referring Provider: Sohan Goncalves MD, [address], [place], [address] . tel:[phone] [facility], [address], [place], [place], [address], [place] tel:[phone] [facility] [address] Lumbar radiculopathySpi nal stenosis, lumbar region with neurogenic claudication 4 Ivanna Parry. [address], [address], [place], [place], [address] , [place]. tel:[phone] Referring Provider: Sohan Goncalves MD, [address], [place], [address] . tel:[phone] Office/outpa tient visit,est, high [facility], [address], [place], [place], [address], [place] tel:[phone] lumbar spine (chief complaint) Lumbar radiculopathySpo ndylolisthesis at L4-L5 levelLumbar painSpinal stenosis, lumbar region with neurogenic claudication 4 Ivanna Parry. [address], [address], [place], [place], [address] , [place]. tel:[phone] Referring Provider: Sohan Goncalves MD, [address], [place], [address] . tel:[phone] [facility], [address], [place], [place], [address], [place] tel:[phone] [facility] [address] No Information 3 Ramy Kline. [address], [place], [place], [address] , [place]. tel: [phone] Referring Provider: Sohan Goncalves MD, [address], [place], [address] . tel:[phone] Office/outpa tient visit,[facility], [address], [place], [place], [address], [place] tel:[phone] lumbar spine pain (chief complaint) Lumbar painLumbar radiculopathySpo ndylolisthesis at L4-L5 level 3 Jessica Sotomayor. [address], [place], [place], [address] , [place]. tel: [phone] Referring Provider: Bran De La Garza, [address] [facility] [address], [place], [address] . tel:[phone] Family History Family Member Type Diagnosis Age At Onset Father Problem (finding) Mother Problem (finding) Payers Payer name Insurance type Covered constitution party ID Authoriza tion(s) MEDICARE MB [id number] [employer] OPEN ACCESS CI [id number] Social History Type Description Quantity Date Captured Comments Alcohol Use Details Caffeine Use Details coffee 1 cup per day Tobacco Use Status Current non-smoker Smoking Status Never smoker Sex Male Vital Signs Date / Time: Height Weight BMI Pulse Rate Blood Pressure Temperature Respiratory Rate Body Surface Area Head Circumference Head Circ. Percentile Wt./Roderick. Percentile BMI percentile Pulse Ox Inhaled Ox 9:04 AM 68.00 in 79.379 kg (175.00 lbs) 26.6 1 kg/m eter (2) 1.95 meter(2) Chief Complaint And Reason For Visit From encounter dated '05/24/2023 09:15'. lumbar spine (chief complaint). Description: Jaime Loera is a 82 year old male. He presents with pain. Patient had a L3/4, L4/5 Translaminar injection performed by Dr. Goncalves on 04/10/23 and reports 70% relief. The problem is fluctuating. The pain is described as aching. The patient is experiencingpain in the following location: lower back. He rates his current pain as 3/10. The pain radiates tothe lower extremities. The symptoms are aggravated by daily activities. In addition to lumbar spinethe patient is also experiencing decreased mobility. Reason For Referral Reason For Referral No Information Plan Of Treatment Date Type Action Status Goal Lifestyle education regardin g diet completed Referral Ordered: MRI of lumbar spine W/o Cntrst spine, lumbar ordered Referral Ordered: X-ray exam Lower spine, min 4 views spine, lumbar ordered Patient Education A Healthy Lifestyle: Ca re Instructions completed History Of Present Illness Encounter Date Complaint History Of Prese nt Illness lumbar spine Jaime Loera is a 82 year old male. He presents with pain. Patient had a L3/4, L4/5 Translaminar injection performed by Dr. Goncalves on 04/10/23 and reports 70% relief. The problem is fluctuating. The pain is described as aching. The patient is experiencing pain in the following location: lower back. He rates his current pain as 3/10. The pain radiates to the lower extremities. The symptoms are aggravated by daily activities. In addition to lumbar spine the patient is also experiencing decreased mobility. lumbar spine Jaime Loera is a 82 year old male. He presents with pain. Patient had a L4/5, L5/S1 Translaminar injection performed by Dr. Goncalves on 03/13/23 and reports 50% relief. He states he no longer has pain in his RLE but has worsening in his left leg. He states he is having difficulty with all activities due to his left leg pain. He states he is unable to sleep due to pain. He would like to know if another injection could help. The problem is fluctuating. The pain is described as aching. The patient is experiencing pain in the following location: lower back. He rates his current pain as 9/10. The pain radiates to the lower extremities on the left side. The symptoms are aggravated by daily activities. lumbar spine Jaime Loera is a 82 year old male. He presents with pain. Patient presents for an MRI follow up. He was also ordered Physical therapy at his last office visit. The symptoms occur constantly. The problem is fluctuating. Currently the patient states that the symptoms are mild-moderate. The pain is described as aching and deep. The pain is described as. The patient is experiencing pain in the following location: lower back. He rates his worst pain as 10/10. He rates his current pain as 7/10. The pain radiates to the lower extremities on the left greater than the right side. The symptoms are aggravated by daily activities. In addition to lumbar spine the patient is also experiencing decreased mobility. lumbar spine pain Jaime Loera is a 82 year old male. He presents with pain. Patient reports ongoing pain for year. He states he has been treating with a chiropractor with no relief. He would like to know if an injection could help. The symptoms occur constantly. The problem is fluctuating. Currently the patient states that the symptoms are mild-moderate. The pain is described as aching and deep. The pain is described as. The patient is experiencing pain in the following location: lower back. He rates his worst pain as 10/10. He rates his current pain as 7/10. The pain radiates to the lower extremities on the left greater than the right side. The symptoms are aggravated by daily activities. In addition to lumbar spine pain the patient is also experiencing decreased mobility. Functional Status Date Functional Assessmen t No Information Instructions Date Instruction Additional Infor brandt Low back and bilater al leg pain with standing and walking and relieved by sitting with worsening over yearsHe had PT with no reliefHe had marked relief from epidurals but the pain has returnedMRI demonstrates stenosis severely L2-3, L3-4, L4-5 with spondylolisthesis L4-5I performed an epidural 03/13/2023 with resolution of right leg pain BUT MARKED LEFT LEFT PAINI performed repeat epidural 04/10/2023 with 70% reliefHE NOTES MARKED RELIEF FROM THE SECONDProcedure notes reviewed MRI images and reports were reviewed independently and discussed with the patient. Extensive discussion and treatment options was performed with the patient. Epidurals were discussed along with the risks and benefits. WE DISCUSSED SURGERY MAY BE NECESSARY IF THE PAIN PERSISTS AND RISKS AND BENEFITS DISCUSSEDDecision made to observe Related to Lumbar radiculopathy Lifestyle education regarding di et Related to Body mass index [BMI] 26.0-26.9, adult Low back and bilater al leg pain with standing and walking and relieved by sitting with worsening over yearsHe had PT with no reliefHe had marked relief from epidurals but the pain has returnedMRI demonstrates stenosis severely L2-3, L3-4, L4-5 with spondylolisthesis L4-5I performed an epidural 03/13/2023 with resolution of right leg pain BUT MARKED LEFT LEFT PAINProcedure note reviewed MRI images and reports were reviewed independently and discussed with the patient. Extensive discussion and treatment options was performed with the patient. Epidurals were discussed along with the risks and benefits. Decision for epidural was made. I will perform this myself. We will proceed forward. WE DISCUSSED SURGERY MAY BE NECESSARY IF THE PAIN PERSISTS AND RISKS AND BENEFITS DISCUSSEDIt should be noted that pain level of patient is marked with >7 on VAS scale, had prior marked improvement from the epidural (75%), the pain has been refractory to formal PT and the patient has been performing ongoing physician directed home exercise program over at least 6 weeksTO BE CLEAR, THE PATIENT HAS BEEN DOING THERAPY EXERCISES INSTRUCTED THROUGH [facility] AT LEAST 3 TIMES WEEKLY, WITH WORSENING PAIN AND NOW INTOLERANCE TO THE EXERCISES DUE TO PAIN.Of note the level of function increased for at least two weeks and the patient was able to decrease the amount of medication used and therapy for at least 2 weeks Related to Lumbar radiculopathy Low back and bilater al leg pain with standing and walking and relieved by sitting with worsening over yearsHe had PT with no reliefHe had marked relief from epidurals but the pain has returnedMRI demonstrates stenosis severely L2-3, L3-4, L4-5 with spondylolisthesis L4-5 MRI images and reports were reviewed independently and discussed with the patient. Extensive discussion and treatment options was performed with the patient. Epidurals were discussed along with the risks and benefits. Decision for epidural was made. I will perform this myself. We will proceed forward. It should be noted that pain level of patient is marked with >7 on VAS scale, had prior marked improvement from the epidural (75%), the pain has been refractory to formal PT and the patient has been performing ongoing physician directed home exercise program over at least 6 weeksTO BE CLEAR, THE PATIENT HAS BEEN DOING THERAPY EXERCISES INSTRUCTED THROUGH [facility] AT LEAST 3 TIMES WEEKLY, WITH WORSENING PAIN AND NOW INTOLERANCE TO THE EXERCISES DUE TO PAIN.Of note the level of function increased for at least two weeks and the patient was able to decrease the amount of medication used and therapy for at least 2 weeks Related to Lumbar radiculopathy Patient presents to the office today with a long history of low back pain and intermittent neurogenic claudication. Patient has been treated in [place] in the past for stenosis with multiple epidurals with good success. He comes to [place] approximately 1 month ago and began having recurrence of back pain and bilateral lower extremity pain that extends down both posterior thighs to the level of the knees. Patient states standing is impossible for any length of time as the pain increases dramatically. Sitting seems to relieve the pain. He can only ambulate short distances. He has been seeing a chiropractor for the last 30 days with no relief of symptoms. Examination today demonstrates an antalgic gait. Sensory exam is intact. Motor exam is 5/5 bilaterally. Reflexes are absent throughout. X-rays were reviewed demonstrating severe degenerative changes throughout the lumbar spine with a grade 1-2 anterolisthesis of L4 on 5 with a retrolisthesis of L2 on 3 with multiple levels of degenerative change and osteophytes. Recommend MRI lumbar spine without contrast for epidural staging. Medrol Dosepak 6-day as directed. GI protection discussed. Physical therapy for the lumbar spine to include massage, electrical stimulation, core strengthening 3 times a week x 4 weeks. Patient will follow-up after the MRI has been completed with me in the [place] office for possible epidurals with Dr. Goncalves. Tramadol 50 mg #28 1 tablet every 6 hours for pain control. Related to Spondylolisthesis at L4-L5 level Assessments Type Assessment Date assessment Body mass index [BMI] 26.0-26.9, adult assessment Spondylolisthesis at L4-L5 level assessment Lumbar pain assessment Spinal stenosis, lumbar region w ith neurogenic claudication assessment Lumbar radiculopathy impression Lumbar radiculopathy. 4 Patient Care Teams Name Effective Dates (start - stop) Status Members No Information
== END 2024-07-01 10:26 | disposition home or self-care (01) ==
LOC: HO.HKAS 10:04
PROVIDERS: PCP Family Medicine; Visit Provider Internal Medicine Hypertension Specialist
DX: N18.30 Chronic kidney disease, stage 3 unspecified (principal); I10 Essential (primary) hypertension
CPT/HCPCS: 99214